=== PATIENT | female | born 1980 | race Caucasian/White ===

== ENCOUNTER 2016-09-23 14:52 | Inpatient (IN) | payer OTHER ==
[~2016-09-23] VITALS: Ht 157.5 cm; Wt 86.2 kg
[2016-09-23 15:12] LABS: GLUCOSE,POINT OF CARE 297 MG/DL (70-110)
[2016-09-23] MEDS ORDERED: CefTRIAXone 1 GM/DEXTROSE 50 ML IV ONE (15:30)
[2016-09-23] MEDS ORDERED: ACETAMINOPHEN 500 MG TABLET PO ONE (15:30)
[2016-09-23] MEDS ORDERED: ONDANSETRON HCL 4 MG/2 ML VIAL IVP ONE ×2 (15:30→19:30)
[2016-09-23] MEDS ORDERED: SODIUM CHLORIDE 0.9% 1,000 ML IV ONE ×2 (15:30→16:15)
[2016-09-23] MEDS ORDERED: ACETAMINOPHEN 1000 MG/ISO-OSM 100 ML IV ONE ×2 (15:32→15:45)
[2016-09-23 15:41] LABS: HEMATOCRIT 38.5 % (36-46); MEAN CORPUSCULAR HEMOGLOBIN 24.8 pg (26.0-34.0); MEAN CORPUSCULAR HGB CONC 33.7 G/dL (31.0-37.0); MEAN CORPUSCULAR VOLUME 74 fL (80-100); PLATELET COUNT (AUTO) 303 K/uL (150-450); RED BLOOD CELL COUNT(AUTO) 5.24 MIL/uL (4.00-5.20); RED CELL DISTRIBUTION WIDTH 15.1 % (11.5-14.5); WHITE BLOOD COUNT (AUTO) 12.5 K/uL (4.5-11.0)
[2016-09-23 16:00] LABS: APPEARANCE,URINE CLEAR (CLEAR); GLUCOSE, URINE (UA) >=1000 mg/dL (NEGATIVE); KETONES,URINE 40 mg/dL (NEGATIVE); LEUKOCYTE ESTERASE ,URINE NEGATIVE (NEGATIVE); OCCULT BLOOD,URINE NEGATIVE (NEGATIVE); PROTEIN,URINE NEGATIVE (NEGATIVE)
[2016-09-23 16:11] LABS: RBC,URINE None Seen /HPF (0-2); WBC,URINE None Seen /HPF (0-5)
[2016-09-23 16:12] LABS: SQUAMOUS EPITHELIAL CELL,UR Rare /LPF (None Seen)
[2016-09-23 16:20] LABS: ANION GAP 16 mmol/L (8-16); CARBON DIOXIDE 22 mmol/L (22-29); CHLORIDE 94 mmol/L (98-107); POTASSIUM 3.7 mmol/L (3.5-5.1); SODIUM SERUM 132 mmol/L (136-145); UREA NITROGEN, BLOOD 8 mg/dL (7-18)
[2016-09-23] MEDS ORDERED: BARIUM SULFATE 0.1% SUSPENSION 450 ML BOTTLE PO ONE (16:30)
[2016-09-23 16:34] LABS: BAND NEUTROPHILS % (MANUAL) 21 % (1-5); LYMPHOCYTES % (MANUAL) 8 % (22-44); RBC MORPHOLOGY COMMENT ABNORMAL RBC MORPH; TOTAL CELLS COUNTED 100
[2016-09-23 16:39] LABS: LACTIC ACID 2.4 mmol/L (0.4-2.0)
[2016-09-23 16:44] LABS: ALANINE AMINOTRANSFERASE 48 U/L (12-78); ASPARTATE AMINOTRANSFERASE 47 U/L (15-37); BILIRUBIN,TOTAL 0.4 mg/dL (0.1-1.0); CREATININE 0.68 mg/dL (0.60-1.30); GLOMERULAR FILTR. RATE CALC > 60 mL/min (>60); TOTAL PROTEIN, SERUM 8.4 g/dL (6.4-8.2)
[2016-09-23] MEDS ORDERED: HYDROmorphone 2 MG/ML SYRINGE IVP ONE ×3 (17:15→22:15)
[2016-09-23 17:31] LABS: REFLEX LACTIC ACID? YES YES
[2016-09-23 17:33] LABS: PROCALCITONIN (PCT) 0.12 ng/mL (<0.50)
[2016-09-23] MEDS ORDERED: IOVERSOL 320 MG/ML 100 ML VIAL ONE (17:54)
[2016-09-23] MEDS ORDERED: SODIUM CHLORIDE 0.9% 100 ML ONE (17:55)
[2016-09-23] MEDS ORDERED: POTASSIUM CHL 20 MEQ/0.45% NS 1,000 ML IV ONE (19:30)
[2016-09-23] MEDS ORDERED: BUPIVACAINE HCL/PF 0.25% 10 ML VIAL INJ ONE (19:30)
[2016-09-23 20:33] LABS: GLUCOSE, CSF 169 mg/dL (50-80); TOTAL PROTEIN, CSF 26 mg/dL (15-45)
[2016-09-23 21:52] LABS: APPEARANCE,CSF CLEAR (CLEAR); COLOR,CSF COLORLESS (COLORLESS)
[2016-09-23] MEDS ORDERED: KETOROLAC TROMETHAMINE 30 MG/ML VIAL IVP ONE (22:15)
[2016-09-23] MEDS ORDERED: ACETAMINOPHEN 325 MG TABLET PO PRN ×2 (22:30)
[2016-09-23] MEDS ORDERED: MAGNESIUM HYDROXIDE SUSPENSION 30 ML UDCUP PO PRN (22:30)
[2016-09-23] MEDS ORDERED: HYDROmorphone 2 MG/ML SYRINGE IVP PRN (22:30)
[2016-09-23] MEDS ORDERED: 0.9% SODIUM CHLORIDE 10 ML SYRINGE IVP PRN (22:30)
[2016-09-23] MEDS ORDERED: DEXTROSE 50%-WATER 25 GM/50 ML SYRINGE IVP PRN (22:30)
[2016-09-23] MEDS ORDERED: ONDANSETRON HCL 4 MG/2 ML VIAL IVP PRN ×2 (22:30)
[2016-09-23] MEDS: SODIUM CHLORIDE 0.9% 1,000 ML IV SCH (23:36)
[2016-09-23 23:57] LABS: GLUCOSE,POINT OF CARE 253 MG/DL (70-110)
[2016-09-24] VITALS (8 sets, daily range): BP systolic 97–119; BP diastolic 57–74
[2016-09-24] MEDS: INSULIN ASPART 100 UNITS/ML SQ PRN ×5 (00:23→20:49)
[2016-09-24] MEDS: OxyCODONE HCL/ACETAMINOPHEN 5-325 MG TABLET PO PRN ×5 (00:30→22:27)
[2016-09-24] MEDS: MORPHINE SULFATE 4 MG/ML SYRINGE IVP PRN ×2 (03:15→06:56)
[2016-09-24 06:43] LABS: BASOPHILS # (AUTO) 0.03 K/uL (0.00-0.20); BASOPHILS % (AUTO) 0.5 % (0.0-2.0); EOSINOPHILS # (AUTO) 0.01 K/uL (0.00-0.70); EOSINOPHILS % (AUTO) 0.11 % (1.0-6.0); HEMATOCRIT 31.6 % (36-46); HEMOGLOBIN 10.3 g/dL (12.0-16.0); LYMPHOCYTES % (AUTO) 16.5 % (22.0-44.0); MEAN CORPUSCULAR HGB CONC 32.7 G/dL (31.0-37.0); MEAN CORPUSCULAR VOLUME 77 fL (80-100); MONOCYTES # (AUTO) 0.3 K/uL (0.1-1.0); MONOCYTES % (AUTO) 4.6 % (2.0-9.0); NEUTROPHILS # (AUTO) 4.6 K/uL (1.8-7.7); NEUTROPHILS % (AUTO) 78.4 % (40.0-70.0); PLATELET COUNT (AUTO) 222 K/uL (150-450); RED BLOOD CELL COUNT(AUTO) 4.13 MIL/uL (4.00-5.20); RED CELL DISTRIBUTION WIDTH 15.2 % (11.5-14.5); WHITE BLOOD COUNT (AUTO) 5.9 K/uL (4.5-11.0)
[2016-09-24 07:21] LABS: RBC MORPHOLOGY COMMENT ABNORMAL RBC MORPH
[2016-09-24 07:27] LABS: HEMOGLOBIN A1C 12.5 % (4.5-6.2)
[2016-09-24 07:36] LABS: ALANINE AMINOTRANSFERASE 35 U/L (12-78); ALBUMIN 2.8 g/dL (3.4-5.0); ANION GAP 11 mmol/L (8-16); ASPARTATE AMINOTRANSFERASE 25 U/L (15-37); BILIRUBIN,TOTAL 0.5 mg/dL (0.1-1.0); CARBON DIOXIDE 23 mmol/L (22-29); CHLORIDE 100 mmol/L (98-107); CREATININE 0.39 mg/dL (0.60-1.30); GLOMERULAR FILTR. RATE CALC > 60 mL/min (>60); POTASSIUM 3.7 mmol/L (3.5-5.1); SODIUM SERUM 134 mmol/L (136-145); TOTAL PROTEIN, SERUM 6.4 g/dL (6.4-8.2); UREA NITROGEN, BLOOD 4 mg/dL (7-18)
[2016-09-24 07:47] LABS: CALCIUM, TOTAL 7.9 mg/dL (8.8-10.5)
[2016-09-24] MEDS: DOCUSATE SODIUM 100 MG CAPSULE PO SCH ×2 (08:52→20:20)
[2016-09-24] MEDS: PANTOPRAZOLE SODIUM 40 MG/VIAL IVP SCH (08:53)
[2016-09-24] MEDS: SODIUM CHLORIDE 0.9% 1,000 ML IV SCH ×2 (08:55→20:39)
[2016-09-24] MEDS ORDERED: SODIUM CHLORIDE 0.9% 100 ML ONE (14:02)
[2016-09-24] MEDS ORDERED: CefTRIAXone 1 GM/DEXTROSE 50 ML IV ONE (15:00)
[2016-09-24] MEDS ORDERED: CefTRIAXone 1 GM/DEXTROSE 50 ML IV SCH (15:00)
[2016-09-24] MEDS ORDERED: *CLINICAL-RX DOSING [ENTER DRUG IN COMMENTS] CLINICAL ONE (15:15)
[2016-09-24] MEDS: DOXYCYCLINE 100 MG in DEXTROSE 5%-WATER 100 ML IV SCH (16:18)
[2016-09-24] MEDS: ACYCLOVIR IV SCH (16:19)
[2016-09-24] MEDS: WATER IV SCH (16:19)
[2016-09-24] MEDS: DEXTROSE 5% IV SCH (16:19)
[2016-09-25] VITALS (7 sets, daily range): BP systolic 100–118; BP diastolic 58–73
[2016-09-25] MEDS: DEXTROSE 5% IV SCH ×3 (01:07→15:17)
[2016-09-25] MEDS: ACYCLOVIR IV SCH ×3 (01:07→15:17)
[2016-09-25] MEDS: WATER IV SCH ×3 (01:07→15:17)
[2016-09-25] MEDS: CefTRIAXone SODIUM 2 GM in DEXTROSE 5%-WATER 50 ML IV SCH ×2 (02:47→14:35)
[2016-09-25] MEDS: OxyCODONE HCL/ACETAMINOPHEN 5-325 MG TABLET PO PRN ×4 (05:00→21:05)
[2016-09-25] MEDS: DOXYCYCLINE 100 MG in DEXTROSE 5%-WATER 100 ML IV SCH ×2 (05:07→15:11)
[2016-09-25] MEDS: MORPHINE SULFATE 4 MG/ML SYRINGE IVP PRN ×2 (06:26→11:23)
[2016-09-25] MEDS: INSULIN ASPART 100 UNITS/ML SQ PRN ×4 (06:32→21:11)
[2016-09-25] MEDS: SODIUM CHLORIDE 0.9% 1,000 ML IV SCH ×2 (07:36→18:07)
[2016-09-25] MEDS: DOCUSATE SODIUM 100 MG CAPSULE PO SCH ×2 (08:05→21:05)
[2016-09-25] MEDS: PANTOPRAZOLE SODIUM 40 MG/VIAL IVP SCH (08:05)
[2016-09-25 11:32] LABS: GLUCOSE COMMENT 1 Received Meds; GLUCOSE,POINT OF CARE 230 MG/DL (70-110)
[2016-09-25 11:37] LABS: GLUCOSE COMMENT 1 Received Meds; GLUCOSE,POINT OF CARE 302 MG/DL (70-110)
[2016-09-25 11:37] LABS: GLUCOSE COMMENT 1 Received Meds; GLUCOSE,POINT OF CARE 234 MG/DL (70-110)
[2016-09-25] MEDS ORDERED: GADOBUTROL 1 MMOL/ML 10 ML VIAL IVP ONE (15:43)
[2016-09-25 16:48] LABS: GLUCOSE COMMENT 1 Received Meds; GLUCOSE,POINT OF CARE 262 MG/DL (70-110)
[2016-09-25] MEDS: MORPHINE SULFATE 2 MG/ML SYRINGE IVP PRN (18:07)
[2016-09-26] VITALS (9 sets, daily range): BP systolic 100–136; BP diastolic 55–80
[2016-09-26] MEDS: ACYCLOVIR IV SCH ×4 (00:58→23:45)
[2016-09-26] MEDS: DEXTROSE 5% IV SCH ×4 (00:58→23:45)
[2016-09-26] MEDS: WATER IV SCH ×4 (00:58→23:45)
[2016-09-26] MEDS: OxyCODONE HCL/ACETAMINOPHEN 5-325 MG TABLET PO PRN ×3 (03:22→14:34)
[2016-09-26] MEDS: SODIUM CHLORIDE 0.9% 1,000 ML IV SCH ×3 (03:23→23:45)
[2016-09-26] MEDS: CefTRIAXone SODIUM 2 GM in DEXTROSE 5%-WATER 50 ML IV SCH ×2 (03:24→15:53)
[2016-09-26] MEDS: DOXYCYCLINE 100 MG in DEXTROSE 5%-WATER 100 ML IV SCH ×2 (03:25→16:45)
[2016-09-26] MEDS: MORPHINE SULFATE 2 MG/ML SYRINGE IVP PRN ×2 (05:35→21:46)
[2016-09-26 06:09] LABS: BASOPHILS % (AUTO) 0.7 % (0.0-2.0); EOSINOPHILS % (AUTO) 2.7 % (1.0-6.0); HEMATOCRIT 30.9 % (36-46); HEMOGLOBIN 10.4 g/dL (12.0-16.0); LYMPHOCYTES % (AUTO) 44.2 % (22.0-44.0); MEAN CORPUSCULAR HEMOGLOBIN 25.1 pg (26.0-34.0); MEAN CORPUSCULAR HGB CONC 33.5 G/dL (31.0-37.0); MEAN CORPUSCULAR VOLUME 75 fL (80-100); MONOCYTES # (AUTO) 0.4 K/uL (0.1-1.0); MONOCYTES % (AUTO) 8.2 % (2.0-9.0); NEUTROPHILS % (AUTO) 44.2 % (40.0-70.0); PLATELET COUNT (AUTO) 261 K/uL (150-450); RED BLOOD CELL COUNT(AUTO) 4.12 MIL/uL (4.00-5.20); RED CELL DISTRIBUTION WIDTH 15.5 % (11.5-14.5); WHITE BLOOD COUNT (AUTO) 4.6 K/uL (4.5-11.0)
[2016-09-26 06:24] LABS: ALANINE AMINOTRANSFERASE 70 U/L (12-78); ALBUMIN 2.8 g/dL (3.4-5.0); ANION GAP 10 mmol/L (8-16); ASPARTATE AMINOTRANSFERASE 57 U/L (15-37); BILIRUBIN,TOTAL 0.2 mg/dL (0.1-1.0); CALCIUM, TOTAL 8.8 mg/dL (8.8-10.5); CARBON DIOXIDE 27 mmol/L (22-29); CHLORIDE 102 mmol/L (98-107); CREATININE 0.49 mg/dL (0.60-1.30); GLOMERULAR FILTR. RATE CALC > 60 mL/min (>60); POTASSIUM 3.7 mmol/L (3.5-5.1); SODIUM SERUM 139 mmol/L (136-145); TOTAL PROTEIN, SERUM 6.6 g/dL (6.4-8.2); UREA NITROGEN, BLOOD 5 mg/dL (7-18)
[2016-09-26 06:56] LABS: RBC MORPHOLOGY COMMENT ABNORMAL RBC MORPH
[2016-09-26] MEDS: INSULIN ASPART 100 UNITS/ML SQ PRN ×4 (06:59→21:50)
[2016-09-26] MEDS: PANTOPRAZOLE SODIUM 40 MG/VIAL IVP SCH (08:19)
[2016-09-26] MEDS: DOCUSATE SODIUM 100 MG CAPSULE PO SCH ×2 (08:20→21:45)
[2016-09-26 10:08] LABS: GLUCOSE COMMENT 1 Received Meds; GLUCOSE,POINT OF CARE 234 MG/DL (70-110)
[2016-09-26 12:32] LABS: ORGANISM ID Not indicated.
[2016-09-26] MEDS: KETOROLAC TROMETHAMINE 15 MG/ML VIAL IVP PRN ×2 (16:57→23:55)
[2016-09-27] VITALS (8 sets, daily range): BP systolic 112–142; BP diastolic 67–88
[2016-09-27] MEDS: OxyCODONE HCL/ACETAMINOPHEN 5-325 MG TABLET PO PRN ×3 (02:45→21:50)
[2016-09-27] MEDS: CefTRIAXone SODIUM 2 GM in DEXTROSE 5%-WATER 50 ML IV SCH ×2 (02:45→14:28)
[2016-09-27] MEDS: KETOROLAC TROMETHAMINE 15 MG/ML VIAL IVP PRN ×3 (06:16→19:49)
[2016-09-27] MEDS: INSULIN ASPART 100 UNITS/ML SQ PRN ×4 (06:21→20:52)
[2016-09-27] MEDS: DEXTROSE 5% IV SCH ×3 (07:46→23:38)
[2016-09-27] MEDS: WATER IV SCH ×3 (07:46→23:38)
[2016-09-27] MEDS: ACYCLOVIR IV SCH ×3 (07:46→23:38)
[2016-09-27 08:02] LABS: BASOPHILS % (AUTO) 0.5 % (0.0-2.0); EOSINOPHILS % (AUTO) 2.5 % (1.0-6.0); HEMATOCRIT 29.4 % (36-46); HEMOGLOBIN 9.9 g/dL (12.0-16.0); LYMPHOCYTES % (AUTO) 47.4 % (22.0-44.0); MEAN CORPUSCULAR HEMOGLOBIN 24.8 pg (26.0-34.0); MEAN CORPUSCULAR HGB CONC 33.7 G/dL (31.0-37.0); MEAN CORPUSCULAR VOLUME 74 fL (80-100); MONOCYTES # (AUTO) 0.3 K/uL (0.1-1.0); MONOCYTES % (AUTO) 7.5 % (2.0-9.0); NEUTROPHILS # (AUTO) 1.8 K/uL (1.8-7.7); NEUTROPHILS % (AUTO) 42.1 % (40.0-70.0); PLATELET COUNT (AUTO) 282 K/uL (150-450); RED BLOOD CELL COUNT(AUTO) 3.99 MIL/uL (4.00-5.20); RED CELL DISTRIBUTION WIDTH 15.2 % (11.5-14.5); WHITE BLOOD COUNT (AUTO) 4.3 K/uL (4.5-11.0)
[2016-09-27 08:47] LABS: ALANINE AMINOTRANSFERASE 78 U/L (12-78); ALBUMIN 2.8 g/dL (3.4-5.0); ANION GAP 9 mmol/L (8-16); ASPARTATE AMINOTRANSFERASE 67 U/L (15-37); BILIRUBIN,TOTAL 0.2 mg/dL (0.1-1.0); CALCIUM, TOTAL 8.5 mg/dL (8.8-10.5); CARBON DIOXIDE 26 mmol/L (22-29); CHLORIDE 102 mmol/L (98-107); CREATININE 0.64 mg/dL (0.60-1.30); GLOMERULAR FILTR. RATE CALC > 60 mL/min (>60); POTASSIUM 3.4 mmol/L (3.5-5.1); SODIUM SERUM 137 mmol/L (136-145); TOTAL PROTEIN, SERUM 6.4 g/dL (6.4-8.2); UREA NITROGEN, BLOOD 8 mg/dL (7-18)
[2016-09-27] MEDS: DOXYCYCLINE 100 MG CAPSULE PO SCH ×2 (09:18→20:10)
[2016-09-27] MEDS: DOCUSATE SODIUM 100 MG CAPSULE PO SCH ×2 (09:18→20:10)
[2016-09-27] MEDS: PANTOPRAZOLE SODIUM 40 MG/VIAL IVP SCH (09:19)
[2016-09-27] MEDS: SODIUM CHLORIDE 0.9% 1,000 ML IV SCH ×2 (11:07→21:52)
[2016-09-27 11:36] LABS: RBC MORPHOLOGY COMMENT ABNORMAL RBC MORPH
[2016-09-27] MEDS ORDERED: POTASSIUM CHLORIDE 20 MEQ ER TABLET PO ONE (16:15)
[2016-09-27 19:08] LABS: HERPES SIMPLEX VIRUS-1 BY PCR Negative (Negative); HERPES SIMPLEX VIRUS-2 BY PCR Negative (Negative)
[2016-09-27 20:15] LABS: ENTEROVIRUS QUAL. RT-PCR Negative (Negative)
[2016-09-28 00:42] LABS: GLUCOSE COMMENT 1 Received Meds; GLUCOSE,POINT OF CARE 302 MG/DL (70-110)
[2016-09-28] MEDS: CefTRIAXone SODIUM 2 GM in DEXTROSE 5%-WATER 50 ML IV SCH ×2 (02:31→14:37)
[2016-09-28 04:53] VITALS: BP 119/77
[2016-09-28] MEDS: SODIUM CHLORIDE 0.9% 1,000 ML IV SCH ×3 (05:00→23:46)
[2016-09-28] MEDS: KETOROLAC TROMETHAMINE 15 MG/ML VIAL IVP PRN ×3 (05:11→19:43)
[2016-09-28 06:18] LABS: BASOPHILS % (AUTO) 0.7 % (0.0-2.0); EOSINOPHILS % (AUTO) 3.2 % (1.0-6.0); HEMATOCRIT 29.3 % (36-46); HEMOGLOBIN 9.9 g/dL (12.0-16.0); LYMPHOCYTES # (AUTO) 2.1 K/uL (1.0-4.8); LYMPHOCYTES % (AUTO) 47.1 % (22.0-44.0); MEAN CORPUSCULAR HEMOGLOBIN 25.1 pg (26.0-34.0); MEAN CORPUSCULAR HGB CONC 33.7 G/dL (31.0-37.0); MEAN CORPUSCULAR VOLUME 75 fL (80-100); MONOCYTES # (AUTO) 0.3 K/uL (0.1-1.0); MONOCYTES % (AUTO) 7.2 % (2.0-9.0); NEUTROPHILS # (AUTO) 1.8 K/uL (1.8-7.7); NEUTROPHILS % (AUTO) 41.8 % (40.0-70.0); PLATELET COUNT (AUTO) 275 K/uL (150-450); RED BLOOD CELL COUNT(AUTO) 3.92 MIL/uL (4.00-5.20); RED CELL DISTRIBUTION WIDTH 14.7 % (11.5-14.5); WHITE BLOOD COUNT (AUTO) 4.4 K/uL (4.5-11.0)
[2016-09-28] MEDS: INSULIN ASPART 100 UNITS/ML SQ PRN ×4 (06:33→20:42)
[2016-09-28 06:36] LABS: ALANINE AMINOTRANSFERASE 74 U/L (12-78); ALBUMIN 2.9 g/dL (3.4-5.0); ANION GAP 8 mmol/L (8-16); BILIRUBIN,TOTAL 0.2 mg/dL (0.1-1.0); CALCIUM, TOTAL 8.6 mg/dL (8.8-10.5); CARBON DIOXIDE 27 mmol/L (22-29); CHLORIDE 103 mmol/L (98-107); CREATININE 0.52 mg/dL (0.60-1.30); GLOMERULAR FILTR. RATE CALC > 60 mL/min (>60); POTASSIUM 3.6 mmol/L (3.5-5.1); SODIUM SERUM 138 mmol/L (136-145); TOTAL PROTEIN, SERUM 6.3 g/dL (6.4-8.2); UREA NITROGEN, BLOOD 6 mg/dL (7-18)
[2016-09-28 06:53] LABS: ASPARTATE AMINOTRANSFERASE 45 U/L (15-37)
[2016-09-28 07:37] LABS: GLUCOSE COMMENT 1 Received Meds; GLUCOSE,POINT OF CARE 274 MG/DL (70-110)
[2016-09-28 07:38] LABS: RBC MORPHOLOGY COMMENT ABNORMAL RBC MORPH
[2016-09-28 07:40] VITALS: BP 120/83
[2016-09-28] MEDS: PANTOPRAZOLE SODIUM 40 MG/VIAL IVP SCH (08:44)
[2016-09-28] MEDS: DOXYCYCLINE 100 MG CAPSULE PO SCH ×2 (08:44→20:41)
[2016-09-28] MEDS: DOCUSATE SODIUM 100 MG CAPSULE PO SCH ×2 (08:44→20:41)
[2016-09-28] MEDS: MORPHINE SULFATE 2 MG/ML SYRINGE IVP PRN (08:45)
[2016-09-28] MEDS: ACYCLOVIR IV SCH ×2 (08:45→16:05)
[2016-09-28] MEDS: WATER IV SCH ×2 (08:45→16:05)
[2016-09-28] MEDS: DEXTROSE 5% IV SCH ×2 (08:45→16:05)
[2016-09-28 11:42] LABS: GLUCOSE COMMENT 1 Received Meds; GLUCOSE,POINT OF CARE 308 MG/DL (70-110)
[2016-09-28 12:00] VITALS: BP 128/71
[2016-09-28 15:42] VITALS: BP 127/79
[2016-09-28 16:30] LABS: WEST NILE VIRUS IGM CSF 0.03 IV (<=0.89)
[2016-09-28 16:57] LABS: GLUCOSE COMMENT 1 Received Meds; GLUCOSE,POINT OF CARE 237 MG/DL (70-110)
[2016-09-28] MEDS ORDERED: LIDOCAINE HCL 1% 10 ML VIAL INJ ONE (17:30)
[2016-09-28] MEDS ORDERED: BUPIVACAINE HCL/PF 0.25% 10 ML VIAL INJ ONE (17:30)
[2016-09-28] MEDS ORDERED: PredniSONE 20 MG TABLET PO ONE (17:45)
[2016-09-28 20:18] VITALS: BP 141/85
[2016-09-28] MEDS: OxyCODONE HCL/ACETAMINOPHEN 5-325 MG TABLET PO PRN (20:41)
[2016-09-28 20:42] LABS: GLUCOSE COMMENT 1 Received Meds; GLUCOSE,POINT OF CARE 288 MG/DL (70-110)
[2016-09-28 20:42] LABS: GLUCOSE,POINT OF CARE 305 MG/DL (70-110)
[2016-09-28 20:47] LABS: GLUCOSE COMMENT 1 Received Meds; GLUCOSE,POINT OF CARE 336 MG/DL (70-110)
[2016-09-28 20:52] LABS: GLUCOSE COMMENT 1 Received Meds; GLUCOSE,POINT OF CARE 227 MG/DL (70-110)
[2016-09-28 23:22] VITALS: BP 148/91
[2016-09-28 23:37] LABS: GLUCOSE,POINT OF CARE 304 MG/DL (70-110)
[2016-09-29] MEDS: MORPHINE SULFATE 2 MG/ML SYRINGE IVP PRN (01:01)
[2016-09-29 04:32] VITALS: BP 120/64
[2016-09-29] MEDS: INSULIN ASPART 100 UNITS/ML SQ PRN ×3 (05:26→17:42)
[2016-09-29] MEDS: OxyCODONE HCL/ACETAMINOPHEN 5-325 MG TABLET PO PRN (05:26)
[2016-09-29 06:42] LABS: ALANINE AMINOTRANSFERASE 76 U/L (12-78); ALBUMIN 3.4 g/dL (3.4-5.0); ANION GAP 13 mmol/L (8-16); ASPARTATE AMINOTRANSFERASE 36 U/L (15-37); BILIRUBIN,TOTAL 0.4 mg/dL (0.1-1.0); CALCIUM, TOTAL 9.1 mg/dL (8.8-10.5); CARBON DIOXIDE 24 mmol/L (22-29); CHLORIDE 101 mmol/L (98-107); CREATININE 0.53 mg/dL (0.60-1.30); GLOMERULAR FILTR. RATE CALC > 60 mL/min (>60); POTASSIUM 4.1 mmol/L (3.5-5.1); SODIUM SERUM 138 mmol/L (136-145); TOTAL PROTEIN, SERUM 7.2 g/dL (6.4-8.2); UREA NITROGEN, BLOOD 9 mg/dL (7-18)
[2016-09-29 06:46] LABS: BASOPHILS % (AUTO) 0.2 % (0.0-2.0); EOSINOPHILS % (AUTO) 0.2 % (1.0-6.0); HEMATOCRIT 32.2 % (36-46); HEMOGLOBIN 10.8 g/dL (12.0-16.0); LYMPHOCYTES # (AUTO) 1.4 K/uL (1.0-4.8); LYMPHOCYTES % (AUTO) 16.1 % (22.0-44.0); MEAN CORPUSCULAR HEMOGLOBIN 24.9 pg (26.0-34.0); MEAN CORPUSCULAR HGB CONC 33.4 G/dL (31.0-37.0); MEAN CORPUSCULAR VOLUME 75 fL (80-100); MONOCYTES # (AUTO) 0.1 K/uL (0.1-1.0); MONOCYTES % (AUTO) 1.7 % (2.0-9.0); NEUTROPHILS # (AUTO) 6.9 K/uL (1.8-7.7); NEUTROPHILS % (AUTO) 81.8 % (40.0-70.0); PLATELET COUNT (AUTO) 355 K/uL (150-450); RED BLOOD CELL COUNT(AUTO) 4.31 MIL/uL (4.00-5.20); RED CELL DISTRIBUTION WIDTH 14.8 % (11.5-14.5); WHITE BLOOD COUNT (AUTO) 8.4 K/uL (4.5-11.0)
[2016-09-29 06:47] LABS: RBC MORPHOLOGY COMMENT ABNORMAL RBC MORPH
[2016-09-29 07:07] LABS: GLUCOSE,POINT OF CARE 266 MG/DL (70-110)
[2016-09-29 07:35] VITALS: BP 119/60
[2016-09-29] MEDS: DOCUSATE SODIUM 100 MG CAPSULE PO SCH (09:30)
[2016-09-29] MEDS: DOXYCYCLINE 100 MG CAPSULE PO SCH (09:30)
[2016-09-29] MEDS: PANTOPRAZOLE SODIUM 40 MG/VIAL IVP SCH (09:30)
[2016-09-29] MEDS: KETOROLAC TROMETHAMINE 15 MG/ML VIAL IVP PRN (09:31)
[2016-09-29 11:52] LABS: GLUCOSE COMMENT 1 Received Meds; GLUCOSE,POINT OF CARE 281 MG/DL (70-110)
[2016-09-29 12:00] VITALS: BP 127/76
[2016-09-29] MEDS ORDERED: PredniSONE 20 MG TABLET PO ONE (12:00)
[2016-09-29] MEDS: SODIUM CHLORIDE 0.9% 1,000 ML IV SCH (12:10)
[2016-09-29 16:00] VITALS: BP 136/89
[2016-09-29] MEDS ORDERED: DOXY50SY PO ×3 (16:58→17:10)
[2016-09-29] MEDS ORDERED: TRAM50TA4 PO ×3 (17:03→17:10)
[2016-09-29] MEDS ORDERED: doxycycline PO (17:21)
[2016-09-29 18:03] LABS: WEST NILE VIRUS IGG Negative (Negative); WEST NILE VIRUS IGM Negative (Negative)
[2016-09-29 20:23] LABS: ANA,IFA (TITER & PATTERN) Negative
[2016-09-30 05:34] LABS: GLUCOSE COMMENT 1 Received Meds; GLUCOSE,POINT OF CARE 307 MG/DL (70-110)
[2016-09-30 08:28] LABS: GLUCOSE COMMENT 1 Received Meds; GLUCOSE,POINT OF CARE 285 MG/DL (70-110)
[2016-09-30 08:28] LABS: GLUCOSE COMMENT 1 Received Meds; GLUCOSE,POINT OF CARE 295 MG/DL (70-110)
[2016-09-30 08:28] LABS: GLUCOSE COMMENT 1 Received Meds; GLUCOSE,POINT OF CARE 257 MG/DL (70-110)
[2016-09-30 08:28] LABS: GLUCOSE COMMENT 1 Received Meds; GLUCOSE,POINT OF CARE 302 MG/DL (70-110)
[2016-09-30 13:07] LABS: GLUCOSE COMMENT 1 Received Meds; GLUCOSE,POINT OF CARE 275 MG/DL (70-110)
== END 2016-09-29 18:10 | disposition home or self-care (01) | DRG 720 ==
LOC: EMS 14:54 → 5S 22:22 → UNDOADMIN 22:22 → 6N 22:22 → 5S 09-24 00:50 → 6N 09-24 00:50
PROVIDERS: ADMIT Internal Medicine; ATTEND Internal Medicine
PROC: 009U3ZX Drainage of Spinal Canal, Percutaneous Approach, Diagnostic (ICD-10-PCS; 2016-09-23)
PROC: 3E023BZ Introduction of Anesthetic Agent into Muscle, Percutaneous Approach (ICD-10-PCS; principal; 2016-09-28)
DX: A41.9 Sepsis, unspecified organism (principal); E11.65 Type 2 diabetes mellitus with hyperglycemia; E66.9 Obesity, unspecified; H53.149 Visual discomfort, unspecified; E34.8 Other specified endocrine disorders; E86.0 Dehydration; E87.1 Hypo-osmolality and hyponatremia; M54.81 Occipital neuralgia; R30.0 Dysuria; Z68.34 Body mass index [BMI] 34.0-34.9, adult; Z79.82 Long term (current) use of aspirin; M54.5 Low back pain; R51 Headache
CPT/HCPCS: 51702; 70450; 70553; 74177; 82945; 82962; 83036; 83605; 84145; 84157; 85651; 86038; 86140; 86308; 86631; 86632; 86694; 86735; 86765; 86787; 86788; 86789; 87040; 87070; 87205; 87498; 87529; 87899; 89051; 96361; 96365; 96375; 96376; 99285; A9585; C9113; J0131; J0133; J0696; J1170; J1815; J1885; J2270; J2405; J3480; J3490; J7030; J7050; J7060